=== PATIENT | male | born 1965 | race Two or more races ===

== ENCOUNTER 2017-10-16 08:31 | Outpatient (CLI) | payer OTHER | END 2017-10-16 08:38 | disposition home or self-care (01) | LOC: TOM 08:31 | DX: R10.31 Right lower quadrant pain (principal); R10.32 Left lower quadrant pain ==

== ENCOUNTER 2018-06-03 10:41 | Outpatient (CLI) | payer OTHER | END 2018-06-03 10:56 | disposition home or self-care (01) | LOC: LAB 10:41 | DX: N20.0 Calculus of kidney (principal); Z51.81 Encounter for therapeutic drug level monitoring ==

== ENCOUNTER → 2018-06-04 | Outpatient (CLI) | payer OTHER | END | disposition home or self-care (01) | LOC: MRI 08:49 | DX: R93.3 Abnormal findings on diagnostic imaging of other parts of digestive tract (principal); K86.89 Other specified diseases of pancreas | CPT/HCPCS: 74182 ==

== ENCOUNTER 2018-08-27 08:24 | Outpatient (CLI) | payer OTHER | END 2018-08-27 09:27 | disposition home or self-care (01) | LOC: SONOGRAMA 08:24 | DX: Z04.9 Encounter for examination and observation for unspecified reason (principal); E04.1 Nontoxic single thyroid nodule ==

== ENCOUNTER 2019-09-11 08:27 | Outpatient (CLI) | payer OTHER | END 2019-09-11 08:37 | disposition home or self-care (01) | LOC: LAB 08:27 | DX: K86.2 Cyst of pancreas (principal) ==

== ENCOUNTER 2019-09-12 09:18 | Outpatient (CLI) | payer OTHER | END 2019-09-12 09:20 | disposition home or self-care (01) | LOC: MRI 09:18 | DX: K86.2 Cyst of pancreas (principal) | CPT/HCPCS: 74183 ==